=== PATIENT | female | born 1975 | race African-American/Black ===

== ENCOUNTER 2020-02-07 00:33 | Outpatient (CLI) | payer OTHER, SELFPAY ==
[2020-02-07 18:00] LABS: SARS-CoV-2 RNA PCR Negative
== END 2020-02-07 00:34 | disposition home or self-care (01) ==
LOC: ANHCOVIDDT 00:33
PROVIDERS: Visit Provider Internal Medicine Gastroenterology
DX: Z01.812 Encounter for preprocedural laboratory examination (principal); Z20.828 Contact with and (suspected) exposure to other viral communicable diseases
CPT/HCPCS: 87635; C9803; U0003

== ENCOUNTER 2020-02-09 00:48 | Day surgery (SDC) | payer OTHER, SELFPAY ==
[2020-02-09 07:30] VITALS: BMI 40.1
[2020-02-09 07:31] VITALS: BP 111/69; PULSE 74; RESP 18; TEMP 36.2; O2SAT 100
[2020-02-09] MEDS: LACTATED RINGERS 1,000 ML 150 ML IV CONT (07:34)
--- NOTE | 2020-02-09 08:19 | P.HP_ITS ---
History of Present Illness History of Present Illness Consent: Risks, benefits, and alternatives have been discussed and questions answered. Patient agrees to proceed with procedure. Chief complaint: Rectal Bleeding Narrative: Molly Ruvalcaba is a 45 year old AA female referred for colonoscopy secondary 3 day history of rectal bleeding which occurred several weeks ago. She has had no bleeding since this time. Patient has usually 2 or 3 bowel movements per week. She but she denies any constipation or straining with bowel movement. She did have a couple liquid stools prior to the bleeding. There is no family history of colon polyps or colon cancer or inflammatory bowel disease. She had no abdominal pain. No new medication. No antibiotic exposure. FORMERLY [facility] Surgical History Surgical History (Updated 02/09/20 @ 08:21 by Ajit Low MD) H/O total hysterectomy History of bilateral tubal ligation History of lumbar spinal fusion Status post cholecystectomy Meds Home Medications and Allergies Home Medications Medication Instructions Recorded Confirmed Type albuterol sulfate 1 inh INHALATION QID PRN 02/05/20 02/05/20 History cetirizine 10 mg PO DAILY 02/05/20 02/05/20 History lactobacillus combination no.8 3,000 mmu cells PO DAILY 02/05/20 02/05/20 History [Adult Probiotic] valacyclovir 1 mg PO DAILY 02/05/20 02/05/20 History Allergies Allergy/AdvReac Type Severity Reaction Status Date / Time clindamycin [From Cleocin] Allergy Severe Rash Verified 02/09/20 07:30 Vital Signs Vital Signs - 24 hr 02/09/20 07:31 Temperature 36.2 C L Pulse Rate 74 Respiratory Rate 18 Blood Pressure 111/69 Pulse Oximetry 100 Exam Const: Orientation/consciousness: patient oriented x3 Resp: Auscultation: clear to auscultation bilaterally Cardio: Rate: regular rate Rhythm: regular rhythm Heart sounds: no murmurs GI: GI Palp: Yes Soft to palpation, No Tenderness to palpation present (GI), Yes No hepatosplenomegaly present and No Palpable mass present Auscultation: normal bowel sounds Neuro: General: patient oriented x3 and no focal motor deficits Extrem: General: no pedal edema Assessment and Plan Additional Plan colonoscopy for evaluation of rectal bleeding
--- NOTE | 2020-02-09 08:33 | WPDANESEPPF ---
Anes - Initial Pre Proc Eval Procedure: Operation Date: 02/09/20 08:30 Proposed Procedures p Colonoscopy - Ajit Low MD Date/Time: 02/09/20 08:33 Surgeon: Ajit Low MD Pre Op Diagnosis: Rectal Bleeding Patient Data Age: 45 Gender: F Height: 5 ft 7 in Weight: 116.1 kg Last Vital Signs Temp 97.2 F L 02/09/20 07:31 Pulse 74 02/09/20 07:31 Resp 18 02/09/20 07:31 BP 111/69 02/09/20 07:31 Pulse Ox 100 02/09/20 07:31 Allergies Allergy/AdvReac Type Severity Reaction Status Date / Time clindamycin [From Cleocin] Allergy Severe Rash Verified 02/09/20 07:30 Home Medications Medication Instructions Recorded Confirmed Type albuterol sulfate 1 inh INHALATION QID PRN 02/05/20 02/05/20 History cetirizine 10 mg PO DAILY 02/05/20 02/05/20 History lactobacillus combination no.8 3,000 mmu cells PO DAILY 02/05/20 02/05/20 History [Adult Probiotic] valacyclovir 1 mg PO DAILY 02/05/20 02/05/20 History Patient hx anesthesia problems: none Family hx anesthesia problems: none PMFSH Past Medical History Medical History (Updated 02/09/20 @ 08:33 by Liu Miller MD) Morbid obesity Surgical History Surgical History (Updated 02/09/20 @ 08:21 by Ajit Low MD) H/O total hysterectomy History of bilateral tubal ligation History of lumbar spinal fusion Status post cholecystectomy Anes - Eval Final PreProcedure Day of Procedure 02/09/20 08:33 Patient weight: morbidly obese Heart: regular rate and rhythm Lungs: clear to auscultation Airway: Mallampati scale class II Neurological: alert and oriented Last oral intake: >/= 8 hours ASA classification: III Emergent: no Anesthetic plan: proceed Anesthesia type and monitoring: general GIVS and standard monitoring Informed Consent: The patient's anesthetic plan and its attendant risks and benefits were discussed with the patient/family/POA. Questions were solicited and answers provided to the satisfaction of the patient/family/POA.
[2020-02-09 09:16] VITALS: BP 90/52; PULSE 69; RESP 18; O2SAT 100
[2020-02-09 09:26] VITALS: BP 96/58; PULSE 65; RESP 20; O2SAT 100
[2020-02-09 09:36] VITALS: BP 101/53; PULSE 61; RESP 15; O2SAT 100
== END 2020-02-09 09:50 | disposition home or self-care (01) ==
PROVIDERS: PCP Internal Medicine; Referring Provider Obstetrics & Gynecology Gynecology; Visit Provider Internal Medicine Gastroenterology
PROC: 0DJD8ZZ Inspection of Lower Intestinal Tract, Via Natural or Artificial Opening Endoscopic (ICD-10-PCS; CPT 45378; principal; 2020-02-09 08:30)
DX: K62.5 Hemorrhage of anus and rectum (principal); D12.0 Benign neoplasm of cecum; K64.1 Second degree hemorrhoids; K64.4 Residual hemorrhoidal skin tags; K57.30 Diverticulosis of large intestine without perforation or abscess without bleeding; E66.01 Morbid (severe) obesity due to excess calories; Z68.41 Body mass index [BMI] 40.0-44.9, adult
CPT/HCPCS: 45385; 88305; J2001; J2704; J7120